=== PATIENT | male | born 1990 | race African-American/Black ===

== ENCOUNTER 2018-12-18 20:47 | Emergency (ER) | payer OTHER, SELFPAY ==
--- NOTE | 2018-12-18 21:45 | CT ---
CT HEAD WITHOUT CONTRAST: 12/18/18 INDICATIONS: Trauma. Ventricles have normal size and position. No evidence of intracranial hemorrhage. No mass or edema. S inuses and mastoids are well aerated. IMPRESSION: No acute abnormality identified. POS: OFF
[2018-12-18] MEDS ORDERED: Triple Antibiotic Oint 1 GM Packet ONE ×2 (21:51→22:25)
[2018-12-18] MEDS ORDERED: Acetaminophen 500 MG TAB ONE (22:45)
--- NOTE | 2018-12-18 22:55 | RAD ---
LEFT ELBOW: 12/18/18 Three views. HISTORY: Injury. Elevation of anterior fat pad is consistent with small joint effusion. No definite fracture identifie d. IMPRESSION: Evidence of joint effusion raises the possibility of occult fracture. Recommend short term follow-up. POS: OFF
== END 2018-12-18 22:53 | disposition home or self-care (01) ==
LOC: ERS 20:47
DX: S00.01XA Abrasion of scalp, initial encounter (principal); S50.812A Abrasion of left forearm, initial encounter; V86.99XA Unspecified occupant of other special all-terrain or other off-road motor vehicle injured in nontraffic accident, initial encounter
CPT/HCPCS: 70450

== ENCOUNTER 2021-02-09 09:41 | Emergency (ER) | payer SELFPAY ==
[2021-02-09] MEDS ORDERED: Ketorolac Tromethamine 30 MG/ML VIAL ONE (10:37)
[2021-02-09] MEDS ORDERED: Lidocaine Viscous Sol 2% 15 ml UD Cup ONE (10:37)
[2021-02-09] MEDS ORDERED: Mag-Al 1200 mg/1200 mg/30 ML UDCUP ONE (10:37)
[2021-02-09] MEDS ORDERED: Famotidine 20 MG TAB ONE (10:38)
== END 2021-02-09 10:59 | disposition home or self-care (01) ==
LOC: ERS 09:41
DX: R07.89 Other chest pain (principal)
CPT/HCPCS: 71045; 93005; 96372; J1885